=== PATIENT | male | born 1995 | race Caucasian/White ===

== ENCOUNTER 2023-07-08 10:43 | Emergency (ER) | payer OTHER, SELFPAY ==
[2023-07-08 10:47] VITALS: BP 141/78; PULSE 70; RESP 14; TEMP 36.9; O2SAT 99; BMI 24.7
[2023-07-08 11:15] LABS: COVID19 -Nasal RAPID Negative (Negative)
--- NOTE | 2023-07-08 11:39 | DI.CT.S_ITS ---
PROCEDURE: CT HEAD/BRAIN WO CON INDICATIONS: pt with recent head injury, visual changes TECHNIQUE: Noncontrast 4.5 mm thick angled axial sections acquired from the foramen magnum to the vertex, with coronal and sagittal reformats. For radiation dose reduction, the following was used: automated exposure control, adjustment of mA and/or kV according to patient size. COMPARISON: None. FINDINGS: Image quality: Excellent. CSF spaces: Basal cisterns are patent. No extra-axial fluid collections. Ventricles are normal in size and shape. Brain: No midline shift. Multifocal punctate hyperdensities predominantly in the curry-white junction of the frontal lobe most likely artifactual. No mass effect or midline shift Curry-white matter interface is normal. Skull and face: Calvarium and visualized facial bones are intact, without suspicious lesions. Sinuses: Visualized sinuses and mastoids are clear. IMPRESSION: Likely artifactual multifocal punctate hyperdensities predominantly bilateral frontal lobe without mass effect. While these are likely artifactually hyperdense vessels, given the history of trauma, consider follow-up MR evaluation to exclude traumatic sequelae Approved by: Robert Menezes M.D. on 07/08/2023 at 11:16
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
[2023-07-08 12:36] VITALS: BP 125/78; PULSE 62; RESP 14; O2SAT 99
== END 2023-07-08 12:37 | disposition home or self-care (01) ==
PROVIDERS: Emergency Medicine; Emergency Provider Physician Assistant; Family Provider Family Medicine; PCP Family Medicine
DX: S09.90XA Unspecified injury of head, initial encounter (principal); W22.8XXA Striking against or struck by other objects, initial encounter; Z20.822 Contact with and (suspected) exposure to COVID-19
CPT/HCPCS: 70450; 87635; 99283; 99284; C9803

== ENCOUNTER 2023-12-22 02:18 | Emergency (ER) | payer SELFPAY ==
[2023-12-22 02:23] VITALS: BP 132/77; PULSE 71; RESP 18; TEMP 36.8; O2SAT 97; BMI 23.7
--- NOTE | 2023-12-22 02:23 | ED_ITS ---
HPI - General Adult General Stated complaint: STD Time Seen by Provider: 12/22/23 02:23 Source: patient Mode of arrival: Ambulatory Limitations: no limitations History of Present Illness HPI narrative: Patient is a 28-year-old male. He is here because his sexual partner who is also in the emergency department has tested positive for chlamydia. The patient states he has not having any symptoms however because he has had recent sexual intercourse with this individual I recommended that he check in to be treated for chlamydia. Related Data Home Medications Medication Instructions Recorded Confirmed ibuprofen 600 mg tablet 600 mg PO TID PRN headaches 07/08/23 07/08/23 Allergies Allergy/AdvReac Type Severity Reaction Status Date / Time No Known Drug Allergies Allergy Verified 07/08/23 10:52 Review of Systems Genitourinary Genitourinary: Reports system reviewed and no additional complaints, except as documented Patient History Social History Smoking Status: Current every day smoker Smoking Status: Current every day smoker tobacco type: vaping alcohol intake frequency: 0-2 drinks per day Substance Use Type: marijuana Exam Const General: cooperative and comfortable Course Orders Ordered: Discontinued Medications Azithromycin (Azithromycin 250 Mg Tablet) 1,000 mg PO NOW ONE Stop: 12/22/23 02:24 Medical Decision Making MDM Narrative Medical decision making narrative: Patient is asymptomatic however because his sexual partner has tested positive for chlamydia I recommended that he check in to be treated. He was given 1 g azithromycin. Recommended that he abstain from sexual activity for the next 7- 14 days and have a test of cure before returning to sexual activity. Discharge Plan Departure Patient Disposition: Home Clinical Impression: Exposure to chlamydia Activity Restrictions/Additional Instructions: I do recommend that you abstain from sexual activity for the next 7-14 days. Ideally you will have a repeat test to make sure that you are not positive for chlamydia before engaging in sexual activity once again. Return to the emergency department for new symptoms. Prescriptions: No Action ibuprofen 600 mg Tablet 600 mg PO TID PRN (Reason: headaches) Referrals: Best Camarena MD [Primary Care Provider] - Stand Alone Forms: Patient Portal/API
[2023-12-22] MEDS: AZITHROMYCIN 250 MG TABLET 1000 MG PO (02:33)
== END 2023-12-22 02:39 | disposition home or self-care (01) ==
PROVIDERS: Emergency Provider Emergency Medicine; Family Provider Family Medicine; PCP Family Medicine
DX: Z20.2 Contact with and (suspected) exposure to infections with a predominantly sexual mode of transmission (principal)
CPT/HCPCS: 99283

== ENCOUNTER 2025-06-30 12:55 | Emergency (ER) | payer BC, SELFPAY ==
[2025-06-30 13:17] VITALS: BP 128/82; PULSE 77; RESP 17; TEMP 36.6; O2SAT 99; BMI 32.8
--- NOTE | 2025-06-30 14:10 | DI.CT.S_ITS ---
PROCEDURE: CT HEAD/BRAIN WO CON INDICATIONS: new daily persistent ZABALA with vision changes TECHNIQUE: Noncontrast 4.5 mm thick angled axial sections acquired from the foramen magnum to the vertex, with coronal and sagittal reformats. For radiation dose reduction, the following was used: automated exposure control, adjustment of mA and/or kV according to patient size. COMPARISON: [facility], MR, BRAIN WITHOUT CONTRAST, 09/05/2015, 15:14. [facility], CT, CT ANGIO HEAD AND NECK, 06/30/2025, 14:29. [facility], CT, CT HEAD/BRAIN WO CON, 07/08/2023, 11:45. FINDINGS: Image quality: Diagnostic. CSF spaces: Basal cisterns are patent. No extra-axial fluid collections. Ventricles are normal in size and shape. Brain: No midline shift. No intracranial mass effect or hemorrhage. Curry- white matter interface is normal. Skull and face: Calvarium and visualized facial bones are intact, without suspicious lesions. Sinuses: Visualized sinuses and mastoids are clear. IMPRESSION: No imaging explanation is found for this patient's presenting symptoms. No acute intracranial pathology. To the limits of this noncontrast study, no findings of intracranial masses or mass effect can be seen. Dictated by: Sheldon Singer M.D. on 06/30/2025 at 13:49 Approved by: Sheldon Singer M.D. on 06/30/2025 at 13:50
--- NOTE | 2025-06-30 14:19 | DI.CT.S_ITS ---
PROCEDURE: CT ANGIO HEAD AND NECK INDICATIONS: new onset daily ZABALA, vision changes TECHNIQUE: After the administration of intravenous contrast, 1 mm thick sections acquired from the aortic arch through the [place] of [place]. 3-dimensional [id number] (MIP) and/or volume rendering reformats were acquired of the central intracranial vasculature and neck separately. For radiation dose reduction, the following was used: automated exposure control, adjustment of mA and/or kV according to patient size. COMPARISON: [facility], MR, BRAIN WITHOUT CONTRAST, 09/05/2015, 15:14. [facility], CT, CT HEAD/BRAIN WO CON, 07/08/2023, 11:45. [facility], CT, CT HEAD/BRAIN WO CON, 06/30/2025, 14:18. FINDINGS: Image quality: Limited by bolus timing, with venous contamination. There is streak artifact seen through the level of the shoulders. Cerebral CT Angiogram: Internal carotid arteries: No acute findings. Intracranial ICA are patent with no significant stenosis. No occlusion. No aneurysm. Anterior cerebral arteries: Unremarkable. No significant stenosis. No occlusion. No aneurysm. Middle cerebral arteries: Unremarkable. No significant stenosis. No occlusion. No aneurysm. Posterior cerebral arteries: Unremarkable. No significant stenosis. No occlusion. No aneurysm. Basilar artery: Unremarkable. No significant stenosis. No occlusion. No aneurysm. Vertebral arteries: Unremarkable as visualized. Dural venous sinuses: Unremarkable given phase of enhancement. Other: Arterial phase appearance of the brain parenchyma is unremarkable. Neck CT Angiogram: Internal carotid arteries: Unremarkable. No significant stenosis. No dissection or occlusion. Common carotid arteries: Unremarkable. No significant stenosis. No dissection or occlusion. External carotid arteries: Unremarkable. No occlusion. Vertebral arteries: The origins of the vertebral arteries both appear widely patent. The more superior extracranial portions of both vertebral arteries also demonstrate normal courses and calibers. The left vertebral artery is dominant to the right. Aortic Arch and Mediastinum: Partially visualized aortic arch unremarkable without evidence of aneurysm. Note is made of an aberrant right subclavian artery, which runs posterior to the esophagus. Other: Arterial phase soft tissues of the neck and chest are unremarkable. IMPRESSION: No imaging explanation is found for this patient's presenting symptoms. No significant intracranial arterial abnormality is seen. No significant abnormality is seen within the arteries of the neck. No findings of dissection are seen. Additional findings: Aberrant right subclavian artery Any quantitative measurements of stenosis were performed using NASCET criteria. Dictated by: Sheldon Singer M.D. on 06/30/2025 at 13:51 Approved by: Sheldon Singer M.D. on 06/30/2025 at 13:52
[2025-06-30] MEDS: KETOROLAC 30 MG/ML VIAL 15 MG IV (14:50)
[2025-06-30] MEDS: SODIUM CHLORIDE 0.9% 1,000 ML 1000 ML IV (14:50)
--- NOTE | 2025-06-30 16:20 | ED.HA ---
HPI - Headache <Tamara Christianson PA-C - Last Filed: 06/30/25 18:58> General Chief Complaint: Headache Stated Complaint: Consistent migraines; concussions symptoms Time Seen by Provider: 06/30/25 13:38 Mode of arrival: Ambulatory History of Present Illness HPI Narrative: 29-year-old male presents to the emergency department today with his for a new daily headache that started about 3 weeks ago. States every day he has a headache for at least part of the day, sometimes it is mild and other times it is a raging migraine. States that pain consistently occurs sometime in the aco coordinator and wakes him up around 4:00 a.m.. States as his day gets going it will usually improve a little bit, especially by the evening time but then it returns in the next morning upon waking up. States that sometimes the headache will return with certain changes in position like leaning forward or turning his head too quickly and he will sometimes have blurry vision or halo vision when this occurs. He has felt nauseous but no vomiting. The headache is located in the occipital region at the base of his head. He denies other associated neck pain or shoulder pain. States he initially thought it was stress because his is and he is going through a major job change and enduring a lot of stress at his current job. However the persistent nature of these headaches has him concerned which is why he presented to the ER today. States his headache currently isn't too bad but yesterday it was very painful. States he also feels his short-term memory has been very bad in the past few weeks He denies photosensitivity, double vision, changes in his speech, weakness, difficulty ambulating. He does note a history of multiple concussions in his life with the last 1 being about 2 years ago. States that his current symptoms feel similar to postconcussive symptoms but denies any recent head injuries. He takes frequent Tylenol and ibuprofen for dental pain which he is currently trying to get fixed with a dentist. Otherwise he takes no ongoing medications. Related Data Home Medications ?Medication ?Instructions ?Recorded ?Confirmed ibuprofen 600 mg tablet 600 mg PO TID PRN headaches 07/08/23 07/08/23 Allergies Allergy/AdvReac Type Severity Reaction Status Date / Time No Known Drug Allergies Allergy Verified 06/30/25 13:18 Review of Systems <Tamara Christianson PA-C - Last Filed: 06/30/25 18:58> Review of Systems ROS Unobtainable: All systems reviewed & are unremarkable except as noted in HPI and below Patient History <Tamara Jacobo JAIME Christianson - Last Filed: 06/30/25 18:58> tobacco type: vaping alcohol intake frequency: 0-2 drinks per day Exam <Tamara Jacobo JAIME Christianson - Last Filed: 06/30/25 18:58> Narrative Exam Narrative: GENERAL: [29] year old patient appears stated age. Well-developed patient, in no acute distress. HEAD: Atraumatic. Normocephalic. No temporal tenderness EYES: Pupils equal round and reactive. Extraocular motions intact. No scleral icterus. No injection or drainage. ENT: Nose without bleeding, purulent drainage. Throat without erythema, tonsillar hypertrophy or exudate. Airway patent. NECK: Trachea midline. Non tender CARDIOVASCULAR: Regular rate and rhythm without murmurs, gallops, or rubs. RESPIRATORY: Clear to auscultation. Breath sounds equal bilaterally. No wheezes, rales, or rhonchi. EXTREMITIES: No edema or joint tenderness. BACK: Nontender without deformity or crepitus. No flank tenderness. NEURO: AOx3. Normal gait. Normal speech. Normal coordination. No focal neurologic deficits noted. SKIN: No rash or erythema of visible areas Initial Vital Signs Initial Vital Signs: Vital Signs Temperature 98 F 06/30/25 13:17 Pulse Rate 77 06/30/25 13:17 Respiratory Rate 17 06/30/25 13:17 Blood Pressure 128/82 06/30/25 13:17 Pulse Oximetry 99 06/30/25 13:17 Oxygen Delivery Method Room Air 06/30/25 13:17 <Mateo Castillo, - Last Filed: 07/03/25 23:24> Initial Vital Signs Initial Vital Signs: Vital Signs Temperature 98 F 06/30/25 13:17 Pulse Rate 77 06/30/25 13:17 Respiratory Rate 17 06/30/25 13:17 Blood Pressure 128/82 06/30/25 13:17 Pulse Oximetry 99 06/30/25 13:17 Oxygen Delivery Method Room Air 06/30/25 13:17 Course <Tamara Jacobo JAIME Chrsitianson - Last Filed: 06/30/25 18:58> Orders Ordered: Discontinued Medications Sodium Chloride (Normal Saline 0.9%) 1,000 mls @ 1,000 mls/hr IV BOLUS ONE Stop: 06/30/25 15:21 Last Infusion: 06/30/25 15:57 Dose: Infused Documented By: Admin: 06/30/25 14:50 Dose: 1,000 mls/hr Documented By: RAUL Ketorolac Tromethamine (Ketorolac 30 Mg/Ml Vial) 15 mg IV NOW ONE Stop: 06/30/25 14:23 Last Admin: 06/30/25 14:50 Dose: 15 mg Documented By: RAUL Vital Signs Vital signs: Vital Signs - 8 hr 06/30/25 13:17 Temperature 98 F Pulse Rate 77 Respiratory Rate 17 Blood Pressure 128/82 Pulse Oximetry 99 Oxygen Delivery Method Room Air <Mateo Castillo DO - Last Filed: 07/03/25 23:24> Orders Ordered: Discontinued Medications Sodium Chloride (Normal Saline 0.9%) 1,000 mls @ 1,000 mls/hr IV BOLUS ONE Stop: 06/30/25 15:21 Last Infusion: 06/30/25 15:57 Dose: Infused Documented By: Admin: 06/30/25 14:50 Dose: 1,000 mls/hr Documented By: RAUL Ketorolac Tromethamine (Ketorolac 30 Mg/Ml Vial) 15 mg IV NOW ONE Stop: 06/30/25 14:23 Last Admin: 06/30/25 14:50 Dose: 15 mg Documented By: RAUL Vital Signs Vital signs: Vital Signs - 8 hr 06/30/25 13:17 Temperature 98 F Pulse Rate 77 Respiratory Rate 17 Blood Pressure 128/82 Pulse Oximetry 99 Oxygen Delivery Method Room Air MDM - Headache <Tamara Christianson PA-C - Last Filed: 06/30/25 18:58> Lab Data 06/30/25 16:15 06/30/25 16:15 Labs: Lab Results 06/30/25 Range/Units 16:15 WBC 8.3 (4.5-11.0) X10^3/uL RBC 4.85 (4.5-5.9) X10^6/uL Hgb 14.1 (13.5-17.5) g/dL Hct 40.4 L (41-53) % MCV 83.3 (80-100) fL MCH 29.0 (26-34) PG MCHC 34.9 (30-36) % RDW 13.4 (11.6-14.8) % Plt Count 246 (150-400) X10^3/uL Neut % (Auto) 77.1 H (50-75) % Lymph % (Auto) 12.2 L (25-40) % [place] % (Auto) 4.4 (3-14) % Eos % (Auto) 2.9 (2-4) % Baso % (Auto) 3.4 H (0-2) % Neut # (Auto) 6400 (4624-3362) /uL Lymph # (Auto) 1000 L (2050-6721) /uL [place] # (Auto) 400 (0-900) /uL Eos # (Auto) 200 (0-450) /uL Baso # (Auto) 300 H (0-100) /uL ESR 5 (0-15) MM/HR Sodium 137 (137-145) mmol/L Potassium 5.0 (3.4-5.1) mmol/L Chloride 106 (98-107) mmol/L Carbon Dioxide 25 (22-32) mmol/L BUN 13 (9-20) mg/dL Creatinine 0.75 (0.66-1.25) mg/dL Estimated GFR > 60 (>60) mL/min BUN/Creatinine Ratio 17.3 (6-22) Glucose 99 (70-99) mg/dL Calcium 8.8 (8.4-10.2) mg/dL Total Bilirubin 1.3 (0.2-1.3) mg/dL AST 26 (17-59) IU/L ALT 33 (<50) IU/L Alkaline Phosphatase 78 (38-126) U/L C-Reactive Protein < 0.5 (<1.0) mg/dL Total Protein 7.3 (6.3-8.2) g/dL Albumin 4.4 (3.5-5.0) g/dL Globulin 2.9 (1.7-4.1) g/dL Albumin/Globulin Ratio 1.5 (1.0-2.8) Imaging Data CT scan - head: Radiologist's Impression: [address] [address] [address] Scan Report Signed Patient: Migue Benitez MR#: [id number] : 1995 Acct:[id number] Age/Sex: 29 / M Date of Service: 06/30/25 Loc: ED Accession Number: [id number] Procedure: CT angio head and neck Ordering Provider: Tamara Christianson PA-C PROCEDURE: CT ANGIO HEAD AND NECK INDICATIONS: new onset daily ZABALA, vision changes TECHNIQUE: After the administration of intravenous contrast, 1 mm thick sections acquired from the aortic arch through the [place] of [place]. 3-dimensional qwxlwaa-ucxeajjit-edqcscbsrc (MIP) and/or volume rendering reformats were acquired of the central intracranial vasculature and neck separately. For radiation dose reduction, the following was used: automated exposure control, adjustment of mA and/or kV according to patient size. COMPARISON: [facility], MR, BRAIN WITHOUT CONTRAST, 09/05/2015, 15:14. [facility], CT, CT HEAD/BRAIN WO CON, 07/08/2023, 11:45. [facility], CT, CT HEAD/BRAIN WO CON, 06/30/2025, 14:18. FINDINGS: Image quality: Limited by bolus timing, with venous contamination. There is streak artifact seen through the level of the shoulders. Cerebral CT Angiogram: Internal carotid arteries: No acute findings. Intracranial ICA are patent with no significant stenosis. No occlusion. No aneurysm. Anterior cerebral arteries: Unremarkable. No significant stenosis. No occlusion. No aneurysm. Middle cerebral arteries: Unremarkable. No significant stenosis. No occlusion. No aneurysm. Posterior cerebral arteries: Unremarkable. No significant stenosis. No occlusion. No aneurysm. Basilar artery: Unremarkable. No significant stenosis. No occlusion. No aneurysm. Vertebral arteries: Unremarkable as visualized. Dural venous sinuses: Unremarkable given phase of enhancement. Other: Arterial phase appearance of the brain parenchyma is unremarkable. Neck CT Angiogram: Internal carotid arteries: Unremarkable. No significant stenosis. No dissection or occlusion. Common carotid arteries: Unremarkable. No significant stenosis. No dissection or occlusion. External carotid arteries: Unremarkable. No occlusion. Vertebral arteries: The origins of the vertebral arteries both appear widely patent. The more superior extracranial portions of both vertebral arteries also demonstrate normal courses and calibers. The left vertebral artery is dominant to the right. Aortic Arch and Mediastinum: Partially visualized aortic arch unremarkable without evidence of aneurysm. Note is made of an aberrant right subclavian artery, which runs posterior to the esophagus. Other: Arterial phase soft tissues of the neck and chest are unremarkable. IMPRESSION: No imaging explanation is found for this patient's presenting symptoms. No significant intracranial arterial abnormality is seen. No significant abnormality is seen within the arteries of the neck. No findings of dissection are seen. Additional findings: Aberrant right subclavian artery Any quantitative measurements of stenosis were performed using NASCET criteria. Dictated by: Sheldon Singer M.D. on 06/30/2025 at 13:51 Approved by: Sheldon Singer M.D. on 06/30/2025 at 13:52 CT : Radiologist's Impression: [address] [address] [address] Scan Report Signed Patient: Migue Benitez MR#: [id number] : 1995 Acct:[id number] Age/Sex: 29 / M Date of Service: 06/30/25 Loc: ED Accession Number: [id number] Procedure: CT head/brain wo con Ordering Provider: Tamara Christianson PA-C PROCEDURE: CT HEAD/BRAIN WO CON INDICATIONS: new daily persistent ZABALA with vision changes TECHNIQUE: Noncontrast 4.5 mm thick angled axial sections acquired from the foramen magnum to the vertex, with coronal and sagittal reformats. For radiation dose reduction, the following was used: automated exposure control, adjustment of mA and/or kV according to patient size. COMPARISON: [facility], MR, BRAIN WITHOUT CONTRAST, 09/05/2015, 15:14. [facility], CT, CT ANGIO HEAD AND NECK, 06/30/2025, 14:29. [facility], CT, CT HEAD/BRAIN WO CON, 07/08/2023, 11:45. FINDINGS: Image quality: Diagnostic. CSF spaces: Basal cisterns are patent. No extra-axial fluid collections. Ventricles are normal in size and shape. Brain: No midline shift. No intracranial mass effect or hemorrhage. Curry-white matter interface is normal. Skull and face: Calvarium and visualized facial bones are intact, without suspicious lesions. Sinuses: Visualized sinuses and mastoids are clear. IMPRESSION: No imaging explanation is found for this patient's presenting symptoms. No acute intracranial pathology. To the limits of this noncontrast study, no findings of intracranial masses or mass effect can be seen. Dictated by: Sheldon Singer M.D. on 06/30/2025 at 13:49 Approved by: Sheldon Singer M.D. on 06/30/2025 at 13:50 [facility] Narrative Medical decision making narrative: Multiple etiologies for patient's symptoms considered including, but not limited to: Cervicogenic headache, brain tumor, vascular abnormality, other mass, anxiety Patient's examination is completely normal with no focal neurologic deficits, no evidence of temporal arteritis, no acute red flag symptoms. However patient has a new daily persistent headache for 3 weeks that wakes him up in the morning and causes some vision changes that he describes as blurred or halo vision. He also reports some increased intensity of the headache with certain positions like leaning forward. These are all concerning symptoms which warranted further investigation with imaging today. CT head and CT angio head and neck were both ordered which were unremarkable. Patient was given ToradolWhich improved his current headache. patient relieved about his normal lab results and normal CT. We discussed the next steps being to find a PCP to discuss his ongoing headache symptoms and to also possibly have a consultation with Neurology. Referral for Neurology placed today. Down the road if his symptoms do not improve he may need an MRI. We discussed signs and symptoms of worsening condition and neurologic changes that would warrant return to the ED for evaluation. Patient understands and agrees with plan. Patient's symptoms improved over duration of stay with above-stated therapies. Findings and discharge diagnosis discussed with patient/family followed by verbalization of understanding Return precautions discussed with patient/family whom verbalize understanding of diagnosis and plan <Mateo Castillo, DO - Last Filed: 07/03/25 23:24> Lab Data Labs: Lab Results 06/30/25 Range/Units 16:15 WBC 8.3 (4.5-11.0) X10^3/uL RBC 4.85 (4.5-5.9) X10^6/uL Hgb 14.1 (13.5-17.5) g/dL Hct 40.4 L (41-53) % MCV 83.3 (80-100) fL MCH 29.0 (26-34) PG MCHC 34.9 (30-36) % RDW 13.4 (11.6-14.8) % Plt Count 246 (150-400) X10^3/uL Neut % (Auto) 77.1 H (50-75) % Lymph % (Auto) 12.2 L (25-40) % [place] % (Auto) 4.4 (3-14) % Eos % (Auto) 2.9 (2-4) % Baso % (Auto) 3.4 H (0-2) % Neut # (Auto) 6400 (3995-4294) /uL Lymph # (Auto) 1000 L (5799-4983) /uL [place] # (Auto) 400 (0-900) /uL Eos # (Auto) 200 (0-450) /uL Baso # (Auto) 300 H (0-100) /uL ESR 5 (0-15) MM/HR Sodium 137 (137-145) mmol/L Potassium 5.0 (3.4-5.1) mmol/L Chloride 106 (98-107) mmol/L Carbon Dioxide 25 (22-32) mmol/L BUN 13 (9-20) mg/dL Creatinine 0.75 (0.66-1.25) mg/dL Estimated GFR > 60 (>60) mL/min BUN/Creatinine Ratio 17.3 (6-22) Glucose 99 (70-99) mg/dL Calcium 8.8 (8.4-10.2) mg/dL Total Bilirubin 1.3 (0.2-1.3) mg/dL AST 26 (17-59) IU/L ALT 33 (<50) IU/L Alkaline Phosphatase 78 (38-126) U/L C-Reactive Protein < 0.5 (<1.0) mg/dL Total Protein 7.3 (6.3-8.2) g/dL Albumin 4.4 (3.5-5.0) g/dL Globulin 2.9 (1.7-4.1) g/dL Albumin/Globulin Ratio 1.5 (1.0-2.8) MDM Narrative Medical decision making narrative: Multiple etiologies for patient's symptoms considered including, but not limited to: Cervicogenic headache, brain tumor, vascular abnormality, other mass, anxiety Patient's examination is completely normal with no focal neurologic deficits, no evidence of temporal arteritis, no acute red flag symptoms. However patient has a new daily persistent headache for 3 weeks that wakes him up in the morning and causes some vision changes that he describes as blurred or halo vision. He also reports some increased intensity of the headache with certain positions like leaning forward. These are all concerning symptoms which warranted further investigation with imaging today. CT head and CT angio head and neck were both ordered which were unremarkable. Patient was given ToradolWhich improved his current headache. patient relieved about his normal lab results and normal CT. We discussed the next steps being to find a PCP to discuss his ongoing headache symptoms and to also possibly have a consultation with Neurology. Referral for Neurology placed today. Down the road if his symptoms do not improve he may need an MRI. We discussed signs and symptoms of worsening condition and neurologic changes that would warrant return to the ED for evaluation. Patient understands and agrees with plan. Patient's symptoms improved over duration of stay with above-stated therapies. Findings and discharge diagnosis discussed with patient/family followed by verbalization of understanding Return precautions discussed with patient/family whom verbalize understanding of diagnosis and plan Co-sign statement: I was available for consultation during this patient's emergency department visit. We did discuss imaging studies to rule out any acute pathology and lab work on initial presentation. This chart is being signed by myself for administrative purposes only. I do not have direct contact with this patient during this visit. They were seen independently by the APC. Discharge Plan Departure Patient Disposition: Home Clinical Impression: Headache Qualifiers: Headache type: new daily persistent Qualified Code(s): G44.52 - New daily persistent headache (NDPH) Instructions: DI for Headache Activity Restrictions/Additional Instructions: Thank you for choosing us to care for you today. You were evaluated for a new daily headache that you have been experiencing. Your CT scan of your head was normal without any notable abnormalities. It is unclear at this time what is causing your new headache. It is possibly have a type of headache called cervicogenic headache. The first-line treatment for this would be to get physical therapy. You will need to get a new primary care physician so you can get a referral for this. We have also referred you to neurology to discuss your headaches, if they persist. Please work on reducing stress and gentle range of motion exercises for your neck and shoulders. If you experience worsening symptoms such as persistent visual changes, vomiting with the headache, weakness or other neurologic symptoms, please return to the emergency department for re-evaluation. Otherwise find a PCP to discuss the next steps. Prescriptions: No Action ibuprofen 600 mg Tablet 600 mg PO TID PRN (Reason: headaches) Referrals: Best Camarena MD [Primary Care Provider, Family Practice] Best Velez MD [Non-Staff, Neurology] - 5-7 days Referral Note: new daily persistent ZABALA with halo vision, ZABALA is present first thing upon waking. CT/CT angio normal in ED. Clinical Impression: Headache Stand Alone Forms: Patient Portal/API, Work Release Note
[2025-06-30 16:25] LABS: Add Manual Diff / Slide Review NO; Hematocrit 40.4 % (41-53); Hemoglobin 14.1 g/dL (13.5-17.5); Lymphocytes Absolute Auto 1000 /uL (1100-4500); Mean Corpuscular HGB Conc 34.9 % (30-36); Mean Corpuscular Hemoglobin 29.0 PG (26-34); Mean Corpuscular Volume 83.3 fL (80-100); Platelet Count 246 X10^3/uL (150-400)
[2025-06-30 16:35] LABS: Alanine Aminotransferase 33 IU/L (<50); Albumin 4.4 g/dL (3.5-5.0); Albumin Globulin Ratio 1.5 (1.0-2.8); Alkaline Phosphatase 78 U/L (38-126); Blood Urea Nitrogen 13 mg/dL (9-20); Calcium 8.8 mg/dL (8.4-10.2); Carbon Dioxide 25 mmol/L (22-32); Chloride 106 mmol/L (98-107); Estimated Glomerular Filt Rate > 60 mL/min (>60); Globulin 2.9 g/dL (1.7-4.1); Glucose 99 mg/dL (70-99); HEMOLYSIS < 15 (0-50); Potassium 5.0 mmol/L (3.4-5.1); Sodium 137 mmol/L (137-145); Total Protein 7.3 g/dL (6.3-8.2)
[2025-06-30 16:43] VITALS: BP 128/82; PULSE 77; RESP 17; O2SAT 99
== END 2025-06-30 16:44 | disposition home or self-care (01) ==
PROVIDERS: Emergency Provider Physician Assistant; Family Provider Family Medicine; PCP Family Medicine
DX: G44.52 New daily persistent headache (NDPH) (principal)
CPT/HCPCS: 70450; 70496; 70498; 80053; 85025; 85651; 86140; 96361; 96374; 99283; 99284; J1885; Q9967